=== PATIENT | female | born 1995 | race Hispanic/Latino ===

== ENCOUNTER 2018-05-17 00:53 | Emergency (ER) | payer OTHER ==
[2018-05-17 00:58] VITALS: RESP 16; O2SAT 98
--- NOTE | 2018-05-17 01:37 | ED PDOC ---
Upper Extremity Pain/Injury Time Seen by Provider: 05/17/18 00:58 Chief Complaint (Nursing): Abnormal Skin Integrity Chief Complaint (Provider): Abnormal Skin Integrity History Per: Patient History/Exam Limitations: no limitations Onset/Duration Of Symptoms: Hrs Current Symptoms Are (Timing): Still Present Additional Complaint(s): 22 y/o female with no significant PMHx presents to the ED for evaluation of a left hand laceration. 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 Patient reports of a foreign body sensation. Patient is right hand dominant. Otherwise: (-) other complaints at this time, (-) medications prior to arrival for pain. PMD: [place] Tetanus Vaccination is up to date LNMP: 04/18/2018 Past Medical History Reviewed: Historical Data, Nursing Documentation, Vital Signs Vital Signs: Last Vital Signs Temp 97.8 F 05/17/18 00:55 Pulse 73 05/17/18 00:55 Resp 16 05/17/18 00:55 BP 123/77 05/17/18 00:55 Pulse Ox 98 05/17/18 00:55 - Medical History PMH: No Chronic Diseases - Surgical History Surgical History: No Surg Hx - Family History Family History: States: Unknown Family Hx - Social History Current smoker - smoking cessation education provided: No Alcohol: Social Drugs: Denies - Immunization History Hx Tetanus Toxoid Vaccination: Yes - Allergies Allergies/Adverse Reactions: Allergies Allergy/AdvReac Type Severity Reaction Status Date / Time No Known Allergies Allergy Verified 05/17/18 00:57 Review of Systems ROS Statement: Except As Marked, All Systems Reviewed And Found Negative Musculoskeletal: Positive for: Hand Pain (Left hand laceration) Physical Exam - Reviewed Nursing Documentation Reviewed: Yes Vital Signs Reviewed: Yes - Physical Exam Comments: GENERAL APPEARANCE: Patient is resting comfortably, awake, alert, oriented x 3, in no acute distress. SKIN: Warm, dry; (-) cyanosis. HAND: (+) .5cm superficial laceration to the 1st webspace of the giordano aspect of the left hand. (-) active bleeding, (-) swelling, (-) tenderness, (-) visualized foreign body. (-) distal neurovascular deficit; Full ROM of the hand , digits and wrist. Remaining upper extremity: Full ROM. Sensation and Capillary refill intact. NEURO AND PSYCH: Mental status as above. - ECG O2 Sat by Pulse Oximetry: 98 (RA) Pulse Ox Interpretation: Normal Medical Decision Making Medical Decision Making: Impression: Hand Laceration Plan: -- Tylenol 650 mg PO -- Hand Left 3 Views XR -- Re-evaluation 129 XR: no foreign body, no fracture as read by ISABEL. Patient notified a Radiologist will review the ED reading if any change in treatment is needed we will contact her. 013 Laceration repair performed with Dermabond by Margret WYNNE. Patient tolerated procedure well, remains NV intact. See procedure note. Educated on adhesive wound care. 014 On re-evaluation, patient reports improvement of symptoms. On exam, patient remains AAOx3, in no acute distress. Lungs clear to auscultation, cardiac RRR, repeat neuro exam shows no focal findings. VSS, stable for discharge. Lab/Diagnostic results d/w the patient in great detail. Diagnosis of hand laceration d/w the patient. Based on history, exam and diagnostic results, plan will be for outpatient follow up. Patient instructed to follow-up with pmd / referral provided / the clinic in 1- 2 days without fail. Advised to take medication as prescribed. Return to the emergency room at any time for any new or worsening symptoms. Patient states she fully agrees with and understands discharge instructions. States that she agrees with the plan and disposition. Verbalized and repeated discharge instructions and plan. I have given the patient opportunity to ask any additional questions. Scribe Attestation: Documented by Leander Layne acting as a scribe for Shantelle Oswald PA-C. Provider Scribe Attestation: All medical record entries made by the Scribe were at my direction and personally dictated by me. I have reviewed the chart and agree that the record accurately reflects my personal performance of the history, physical exam, medical decision making, and the department course for this patient. I have also personally directed, reviewed, and agree with the discharge instructions and disposition. Disposition - Clinical Impression Clinical Impression: Hand laceration - Patient ED Disposition Is Patient to be Admitted: No Counseled Patient/Family Regarding: Studies Performed, Diagnosis, Need For Followup - Disposition Referrals: [facility] [Outside] Teto Thomas MD [Staff Provider] - Disposition: Routine/Home Disposition Time: 01:41 Condition: STABLE Additional Instructions: The emergency medical care you received today was directed towards the acute presenting symptoms. If you were prescribed any medication, please fill it and give as directed. It may take several days for your symptoms to resolve. Return to the Emergency Department at any time if symptoms worsen, do not improve, or if any other problems arise. Please contact your doctor in 2 days for re-evaluation and follow up / or call one of the physicians/clinics you have been referred to that are listed on the Patient Visit Information form that is included in your discharge packet. Bring any paperwork you were given at discharge with you along with any medications to your follow up visit. Our treatment cannot replace ongoing medical care by a primary care provider (PCP) outside of the emergency department. Instructions: Laceration Repair With Glue (DC), Wound Care Forms: [employer] ([employer]) Print Language: BULGARIAN - POA Present On Arrival: None Procedure: Wound Repair - Time Performed Time Performed: 01:35 - Time Out Time Out: Side verified, Site verified, Patient ID confirmed - Procedure Procedure: Wound Repair: Hand Laceration Repair - Consent Obtained Consent obtained: Verbal - Performed by Performed by: Mid-level Provider (Margret WYNNE) - Indications Indication(s):: Laceration - Location Location:: Left, Hand Shape:: Linear Dimensions Length cm: .5 Depth:: Epidermis - Debris Debris:: None - Irrigated Irrigated with ml of normal saline: 30 - Complexity Complexity:: Simple (one layer) - Wound repair method [place]urant:: Tissue glue - Complications Complications: None - Patient tolerated procedure Patient Tolerated Procedure:: Well
[2018-05-17 02:05] VITALS: BP 120/72; PULSE 72; TEMP 98.2
--- NOTE | 2018-05-17 16:34 | RAD ---
PROCEDURE: Left Hand Radiographs. HISTORY: r/o FB COMPARISON: None. FINDINGS: BONES: Normal. No fracture. JOINTS: Normal. No osteoarthritic changes. SOFT TISSUES: Normal. OTHER FINDINGS: None. IMPRESSION: Normal left hand radiographs.
== END 2018-05-17 01:45 | disposition home or self-care (01) ==
LOC: H.ER 00:53
DX: S61.412A Laceration without foreign body of left hand, initial encounter (principal); W25.XXXA Contact with sharp glass, initial encounter; Y99.0 Civilian activity done for income or pay